=== PATIENT | female | born 1975 ===

== ENCOUNTER 2025-05-03 14:18 | Outpatient (REF) | payer OTHER, SELFPAY ==
[2025-05-03 18:08] LABS: MANUAL DIFF FLAG NO
[2025-05-03 19:08] LABS: Hematocrit 40.0 % (37.0-47.0); Hemoglobin 13.2 g/dl (12.0-16.0); Imm Gran Abs Auto 0.01 X10*3/uL (0.00-0.03); Imm Gran Pct Auto 0.1 % (0.0-0.4); Lymphocytes Absolute Auto 3.6 X10*3/uL (1.2-4.9); Mean Corpuscular HGB Conc 33.0 g/dl (31.0-35.0); Mean Corpuscular Hemoglobin 29.2 pg (27.0-33.0); Mean Corpuscular Volume 88.5 fL (80.0-98.0); NRBC Abs Auto 0.000 X10*3/uL (0.0-0.012); NRBC Pct Auto 0.0 /100WBC (0.0-0.2); Platelet Count 296 X10*3/uL (160-400); Red Blood Count 4.52 X10*6/uL (4.20-5.50); White Blood Count 7.2 X10*3/uL (4.8-10.8)
[2025-05-04 19:14] LABS: Class Alternaria alternata 0; Class Aspergillus fumigatus 0; Class Bermuda Grass 0; Class Birch 0; Class Cat Dander 1; Class Cladosporium herbarum 0; Class Cockroach 0; Class Common Ragweed 0; Class Cottonwood 0; Class Derm. pterony 0; Class Dermatophagoides farinae 0; Class Dog Dander 0/1; Class Elm 0; Class Maple Box Elder 0; Class Mountain Cedar 0; Class Mouse Urine Protein 0; Class Mugwort 0; Class Oak 0; Class Penicillium crysogenum 0; Class Rough Pigweed 0; Class Sheep Sorrel 0; Class Sycamore 0; Class Timothy Grass 0; Class Walnut Tree 0; Class White Ash 0; Class White Mulberry 0; D002 - IgE D farinae <0.10 kU/L; E001 - IgE Cat Dander 0.39 kU/L; E005 - IgE Dog Dander 0.35 kU/L; G006 - IgE Timothy Grass <0.10 kU/L; I006-IgE Cockroach, German <0.10 kU/L; M002 - IgE Cladosporium herbar <0.10 kU/L; M003 - IgE Aspergillus fumigat <0.10 kU/L; M006 - IgE Alternaria alternat <0.10 kU/L; T001 IgE Maple/Box Elder <0.10 kU/L; T006 - IgE Cedar, Mountain <0.10 kU/L; T007 - IgE Oak, White <0.10 kU/L; T008 IgE Elm, American <0.10 kU/L; T010 - IgE Walnut <0.10 kU/L; T011 - IgE Maple Leaf Sycamore <0.10 kU/L; T014 - IgE Cottonwood <0.10 kU/L; T015 - IgE Ash, White <0.10 kU/L; T070 - IgE White Mulberry <0.10 kU/L; W001 - IgE Ragweed, Short <0.10 kU/L; W006 - IgE Mugwort <0.10 kU/L; W014 IgE Pigweed, Common <0.10 kU/L; W018 IgE Sheep Sorrel <0.10 kU/L
== END 2025-05-03 14:19 | disposition home or self-care (01) ==
LOC: HO.WFDLDS 14:18
PROVIDERS: PCP Physician Assistant Medical; Visit Provider Nurse Practitioner Family
DX: R06.02 Shortness of breath (principal); Z91.09 Other allergy status, other than to drugs and biological substances
CPT/HCPCS: 36415; 82785; 85025; 86003

== ENCOUNTER 2025-05-03 14:18 | Outpatient (AMB) | payer OTHER, SELFPAY ==
[2025-05-03 14:21] VITALS: BP 140/78; PULSE 73; O2SAT 97; BMI 41.7
--- NOTE | 2025-05-03 14:21 | MHC.OFFVIS ---
Vital Signs 05/03/25 14:21 Height 5 ft 3 in Weight 235 lb 8 oz BMI 41.7 BP 140/78 H Blood Pressure Location Lt brachial Position Sitting Pulse 73 Pulse Source Pulse Oximeter Pulse Oximetry (%) 97 Oxygen Delivery Method Room Air Intake Visit Reasons: Asthma Allergies ciprofloxacin (From Cipro) Allergy (Intermediate, Verified 05/03/25 14:26) Dizziness levofloxacin (From Levaquin) Allergy (Intermediate, Verified 05/03/25 14:26) Dizziness prednisone Allergy (Intermediate, Verified 05/03/25 14:26) Redness of Skin Sulfa (Sulfonamide Antibiotics) Allergy (Intermediate, Verified 05/03/25 14:26) Unknown HPI HPI Asthma: Details: Justine is a pleasant 49 year old female, former 15 year smoker, quit 5+ years ago with underlying eosinophilia, allergic rhinitis, anxiety, depression and IBS. She was referred by PCP for pulmonary evaluation questioning asthma. The patient reports experiencing wheezing, particularly noticeable when lying down at night, and occasional shortness of breath during activities, although she does not engage in regular exercise. She was previously told she had asthma during a but has not had a formal diagnosis since then. She uses albuterol inhalers as needed, but not on a regular basis. The wheezing has been present for months, possibly years, and is sometimes accompanied by a dry cough. Denies h/o recurrent URIs. There is a family history of asthma, with her sister and children also affected. The patient has a history of allergies, confirmed by previous allergy testing, which showed sensitivity to multiple allergens many years ago. She experiences symptoms such as sneezing and wheezing, which she associates with exposure to tree pollen and leaf mold, especially after moving to a new house with significant leaf debris. She has not been taking any allergy medications regularly but has used loratadine in the past, which she discontinued due to itching upon cessation. Denies any occupational exposures. Review of Systems Const Denies chills, Denies excessive sweating, Denies fever(s), Denies headache(s) and Denies night sweats Eyes Denies dry eyes and Denies irritation ENT Reports Normal hearing present, Denies headache(s), Denies nasal congestion, Denies nasal discharge, Denies post nasal drip and Denies sore throat Card Denies chest pain, Denies chest pain at rest, Denies chest pain with activity, Denies claudication, Denies leg edema, Denies orthopnea and Denies paroxysmal nocturnal dyspnea Resp Denies chest congestion, Denies excessive phlegm production, Denies pain on inspiration, Denies pain with cough and Denies stridor Musc Denies myalgias Neuro Reports Normal hearing present and Denies headache(s) Endo Denies excessive sweating Terence/Lymph Denies lymphadenopathy Aller/Immun Denies seasonal rhinorrhea Physical Exam Vital Signs: Last Vital Signs Pulse 73 05/03/25 14:21 BP 140/78 H 05/03/25 14:21 Pulse Ox 97 05/03/25 14:21 Oxygen Delivery Method Room Air 05/03/25 14:21 BMI result Body Mass Index 41.7 Const General: cooperative, healthy appearing, comfortable, no acute distress, well developed and alert Nutritional Appearance: obese Orientation/consciousness: patient oriented x3 Limitations: no limitations HEENT Head: Yes normal to inspection, Yes normocephalic and Yes atraumatic Ears: hearing grossly normal bilaterally and external ears normal Eyes General: appearance normal, both eyes and all related structures Eyelids: Yes eyelids normal Sclerae: sclerae normal EOM: EOMs intact bilaterally Neck Neck: Yes normal visual inspection and Yes no lymphadenopathy Lymphatic: no lymphadenopathy noted Chest Chest palpation & inspection: normal inspection of the chest Resp Effort & Inspection: normal respiratory effort, able to speak in complete sentences, no audible wheezes, no cough, no stridor, not tachypneic, no tripod positioning and no use of accessory muscles Auscultation: clear to auscultation bilaterally Cardio Jugular venous distension: no JVD Rate: regular rate Rhythm: regular rhythm Skin Other: warm, dry General skin exam: no rashes or lesions noted Neuro General: patient oriented x3 Cranial nerves: Yes Normal hearing present Cognition (Neuro): normal cognition Gait exam (Neuro): Normal gait present Extrem General: Yes normal to inspection, Yes capillary refill normal, Yes no clubbing, cyanosis or edema and Yes no pedal edema Psych Appearance: grossly normal and well kempt Speech and movement: Normal speech and movement present and Clear speech present Affect: normal affect Attitude: cooperative Thought process: Normal thought process present Thought content: Normal thought content present Insight: Good insight present (Psych) Judgement: Good judgement present (Psych) Assessment & Plan Assessment & Plan (1) Dyspnea: Code(s): R06.00 - Dyspnea, unspecified Category: Medical (2) Environmental allergies: Code(s): Z91.09 - Other allergy status, other than to drugs and biological substances Category: Medical Plan Discussed with the patient the potential diagnosis of asthma and the importance of conducting a PFT and chest x-ray to evaluate lung function and structure. We discussed the role of allergies in her symptoms and the need for updated allergy testing. Will send for RAST. Advised her to use albuterol as needed and to monitor her symptoms, with consideration for ICS. All questions were answered and patient is in agreement of plan. Will follow-up to review results or sooner if needed. Orders: Orders Complete Blood Count Auto Diff Today Z91.09 - Other allergy status, other than to drugs and biological substances XR chest 2V Today R06.00 - Dyspnea, unspecified PFT pulmonary function test Today R06.00 - Dyspnea, unspecified Resp Allergy Profile Region I Today Z91.09 - Other allergy status, other than to drugs and biological substances Immunoglobulin E Today Z91.09 - Other allergy status, other than to drugs and biological substances Coding Level of Care Code New Pt Level 4 (71963) Diagnoses Dyspnea R06.00 Environmental allergies Z91.09
--- OUTSIDE RECORDS SUMMARY | 2025-05-03 17:42 | XMS_ITS | Encounter Summary ---
Author Organization [facility] Address [address] [place] [address] Care Team Providers Care Extras Casting Director Name Role Phone Mack Wilson MD Primary Care Provider [phone] Encounter Details Date Type Department Care Team (Late st Contact Info) Description 10/05/2024 Lab Requisition [facility] - Main Lab [address] [facility] [place] [address] Thong Gee MD [address] [place] [phone] Urinary tract infection, site not specified Social History Tobacco Use Types Packs/Day Years Used Date Smoking Tobacco: Former Cigarettes 0.3 24.7 0 06/22/1995 - 03/22/2020 Smokeless Tobacco: Never Alcohol Use Standard Drinks/Week Comments Yes 0 (1 standard drink = 0.6 oz pur e alcohol) Comments No Sex and Gender Information Value Date Recorded Sex Assigned at Female 02/03/2025 8:21 AM EDT Legal Sex Female 5:42 AM EST Gender Identity Female 02/03/2025 8:21 AM EDT Sexual Orientation Not on file documented as of this encounter Plan of Treatment Upcoming Encounters Date Type Department Care Team (Late st Contact Info) Description 05/22/2025 3:00 PM EST Office Visit Gastroenterology - [address] [place] [phone] Raven Henning NP [address] [place], [place] [phone] documented as of this encounter Procedures Procedure Name Priority Date/Time Associated Diagnosis Comments CULTURE URINE Routine 10/05/2024 12:00 AM EDT Urinary tract infection, site not specified documented in this encounter Results * Culture urine (10/05/2024 12:00 AM EDT) Culture, Urine No growth 10/06/2024 2:11 PM EDT [facility] Urine Indwelling urinary catheter / Unknown 10/05/2024 10/05/2024 6:24 PM EDT us Thong Gee MD LAB MICROBIOLOGY - GENERA L ORDERABLES Final Result [facility] [address] [place] [address], documented in this encounter Visit Diagnoses Diagnosis Urinary tract infection, site not specified documented in this encounter Care Teams Extras Casting Director Relationship Specialty Start Date End Date Mack Wilson MD [facility] [place] [address] PCP - General Internal Medicine 02/03/25 documented as of this encounter
--- OUTSIDE RECORDS SUMMARY | 2025-05-03 17:42 | XMS_ITS | Clinical Summary ---
Author Organization [facility] Address [address] [place] [address] Phone Care Team Providers Care Auto Machinist Name Role Phone Mack Wilson MD Primary Care Provider [phone] Allergies Active Allergy Reactions Criticality Noted Date Comments Amoxicillin-Pot Clavulanate Diarrhea,Nausea And Vomiting High 07/16/2023 Also dehydration Ciprofloxacin Unknown 02/02/2018 S/e - dizziness Levofloxacin Unknown 08/20/2018 S/e dizziness Morphine 04/30/2024 Other 02/02/2018 Post nasal drip , Stuffiness Prednisone Flushing,Unknown Medium 02/06/2022 Sulfa (Sulfonamide Antibiotics) Unknown 04/17/2022 Medications PAROXETINE HCL ORAL Take by mouth. Activ e LORazepam (ATIVAN) 0.5 mg tablet Take 1 tablet (0.5 mg total) by mouth 3 (three) times a day if needed for anxiety. 06/02/20 24 Active albuterol HFA (PROAIR HFA ; PROVENTIL HFA ; VENTOLIN HFA) 90 mcg/actuation inhaler Inhale 1-2 puffs by mouth. 09/16/19 20 Active fluticasone propionate (Flonase Allergy Relief) 50 mcg/actuation nasal spray Administer into affected nostril(s). 09/25/19 23 Active loratadine (CLARITIN) 10 mg tablet Take 1 tablet (10 mg total) by mouth 1 (one) time each day. 07/16/19 24 Active ondansetron ODT (ZOFRAN-ODT) 4 mg disintegrating tablet Dissolve 1 tablet (4 mg total) on top of the tongue every 8 (eight) hours if needed. 09/25/19 23 Active pantoprazole (PROTONIX) 40 mg EC tablet PLEASE SEE ATTACHED FOR DETAILED DIRECTIONS Active PARoxetine CR (PAXIL-CR) 12.5 mg 24 hr tablet Take 1 tablet (12.5 mg total) by mouth 1 (one) time each day in the morning. Active simethicone (MYLICON,GAS-X) 125 mg capsule Take 1 capsule (125 mg total) by mouth. 06/25/19 22 Active sodium fluoride-pot nitrate 1.1-5 % paste dental paste USE 2-3X/DAILY, SPIT OUT EXCESS. DO NOT RINSE WITH WATER. NO EATING OR DRINKING FOR 45 MIN AFTER 05/25/20 24 Active norethindrone (LG,LION,HEAT HER,MICRONOR) 0.35 mg tablet Take 1 tablet (0.35 mg total) by mouth 1 (one) time each day. 28 tablet 06/06/20 24 025 Active norethindrone (LG,LION,HEAT HER,MICRONOR) 0.35 mg tablet Take 1 tablet (0.35 mg total) by mouth 1 (one) time each day. 28 tablet 07/04/19 25 Active sucralfate (CARAFATE) 100 mg/mL suspension Take 10 mL (1 g total) by mouth 4 (four) times a day if needed (dyspepsia). 1200 mL 07/04/19 25 Active pantoprazole (PROTONIX) 40 mg EC tablet Take 1 tablet (40 mg total) by mouth 2 (two) times a day. Take on empty stomach, wait 30 mins and then eat to activate the medication before breakfast and supper 60 each 07/04/19 25 Active famotidine (Pepcid) 20 mg tablet Take 1 tablet (20 mg total) by mouth 2 (two) times a day. 60 each 07/04/19 25 026 Active ergocalciferol (VITAMIN D-2) 1,250 mcg (50,000 unit) capsule TAKE 1 CAPSULE BY MOUTH ONCE WEEKLY FOR 8 WEEKS 11/18/19 25 Active fluconazole (DIFLUCAN) 100 mg tablet Take by mouth 1 (one) time each day. Active doxycycline (ADOXA) 100 mg tablet Take 1 tablet (100 mg total) by mouth 2 (two) times a day. Take with a full glass of water and do not lie down for at least 30 minutes after Active methocarbamoL (ROBAXIN) 500 mg tablet Take 1 tablet (500 mg total) by mouth 4 (four) times a day. Active naltrexone (DEPADE) 50 mg tablet Take 1 tablet (50 mg total) by mouth 1 (one) time each day. Active dicyclomine (BENTYL) 10 mg capsule Take 1 capsule (10 mg total) by mouth 4 (four) times a day if needed (abd pain/cramping) . 360 capsule 04/06/20 25 026 Active sucralfate (CARAFATE) 100 mg/mL suspension Take 10 mL (1 g total) by mouth 4 (four) times a day (with meals and nightly). Take 1 hour before meals and at bedtime 1200 mL 11 04/26/20 24 025 dicyclomine (BENTYL) 10 mg capsule Take 1 capsule (10 mg total) by mouth. 07/30/19 24 025 Discontinu ed(Reorder ) Active Problems No known active problems Encounters Date Type Department Care Team Description 04/01/2025 8:14 AM EDT - 04/01/2025 11:59 PM EDT Hospital Encounter Radiology Department - [address] [address] Encounter for screening mammogram for breast cancer Discharge Disposition: Home or Self Care 02/03/2025 Telephone Gastroenterology - [address] [place] [phone] Jose Antonio Phelps MD from Last 3 Months Immunizations Immunization Administration Dates Next Due Influenza Quadravalent, MDCK , 0.5ml, preservative free (Flucelvax) 6mo and older 04/09/2021,04/04/2020 Pneumococcal polysaccharide 23 valent (Pneumovax 23) 2yo and older 02/09/2019 Surgical History Surgery Date Site/Laterality Comments TONSILLECTOMY PROCEDURE: HISTORICAL TONSILLECTOMY SECTION PROCEDURE: [place] DELIVERY ONLY; COMMENT: x2 UPPER GASTROINTESTINAL ENDOSCOPY 05/15/20 20 PROCEDURE: UPPER GI ENDOSCOPY/EXAM; COMMENT: tiny pyloric ulcers/biopy pending COLONOSCOPY 05/23/20 PROCEDURE: HISTORICAL COLONOSCOPY; COMMENT: normal ESOPHAGOGASTRODUODENOSCOPY 05/23/20 PROCEDURE: [place] ESOPHAGOGASTRODUODENOSCOPY TRANSORAL DIAGNOSTIC; COMMENT: normal, antral biopsy pending Medical History Medical History Date Comments Obesity (BMI 30-39.9) 02/02/2018 DX:Obesity (BMI 30-39.9) Thoracic outlet syndrome 02/02/2018 DX:Thor acic outlet syndrome Erosive gastritis 05/22/2020 DX:Erosive gas tritis Eosinophilia DX:Eosinophilia Epigastric pain DX:Epigastric pa in Anxiety DX:Anxiety Nausea DX:Nausea IBS (irritable bowel syndrome) D X:IBS (irritable bowel syndrome) Esophageal reflux DX:Esophageal reflux Gassiness DX:Gassiness History of gastric ulcer DX:Hist ory of gastric ulcer Asthma DX:Asthma Depressive disorder DX:Depressiv e disorder Abdominal pain DX:Abdominal austin n Acute stress reaction DX:Acute s tress reaction Family History Medical History Relation Name Comments Coronary artery disease Father CABG x5, sciatica No Known Problems Maternal Grandfather Glaucoma Maternal Grandmother Hypertension Mother alzheimers, hea rt issues, diabetes, OA, thyroid disease No Known Problems Paternal Grandfather No Known Problems Paternal Grandmother Thyroid disease Sister 1 No Known Problems Sister 2 Allergies Son 1 Allergies Son 2 Breast cancer Neg Hx Relation Name Status Comments Father Maternal Grandfather Maternal Grandmother Mother Paternal Grandfather Paternal Grandmother Sister 1 Alive Sister 2 Alive Son 1 Son 2 Social History Tobacco Use Types Packs/Day Years Used Date Smoking Tobacco: Former Cigarettes 0.3 24.7 0 06/22/1995 - 03/22/2020 Smokeless Tobacco: Never Tobacco Cessation:Counseling Given: Not Answered Alcohol Use Standard Drinks/Week Comments Yes 0 (1 standard drink = 0.6 oz pur e alcohol) Comments No Sex and Gender Information Value Date Recorded Sex Assigned at Female 02/03/2025 8:21 AM EDT Legal Sex Female 5:42 AM EST Gender Identity Female 02/03/2025 8:21 AM EDT Sexual Orientation Not on file Obstetrics History Para Term AB IAB SAB Ectopic Multiple Livin g Live Births 3 2 2 2 Date Outcome GA Total Labor Labor/2nd/3rd Weight Sex Type Anes PTL Candy A1 A5 Name Clin Term 2007 M CS-LTra nv 2012 Term M CS-LTra nv Last Filed Vital Signs Vital Sign Reading Time Taken Comments Blood Pressure 128/76 07/04/2024 8:03 AM EST Pulse 84 07/04/2024 8:03 AM EST Temperature 36.4 C (97.5 F) 05/01/2024 12:24 AM EST Respiratory Rate 17 06/06/2024 3:24 PM EST Oxygen Saturation 100% 05/01/2024 12:24 AM EST Inhaled Oxygen Concentration - - Weight 107 kg (236 lb) 07/04/2024 8:03 AM EST Height 160 cm (5' 3 ) 07/04/2024 8:03 AM EST Body Mass Index 41.81 07/04/2024 8:03 AM EST Plan of Treatment Upcoming Encounters Date Type Department Care Team ([facility] st Contact Info) Description 05/22/2025 3:00 PM EST Office Visit Gastroenterology - [address] [phone] Raven Henning, BRIAN [address] [facility] [address] [place] [address] Health Maintenance Due Date Last Done Comments DTaP,Tdap,and Td Vaccines (1 - Tdap) 1996 Hepatitis B Vaccines (1 of 3 - 19+ 3-dose series) 1996 Pneumococcal Vaccine: Pediatrics (0 to 5 Years) and At-Risk Patients (6 to 49 Years) (2 of 2 - PCV) 02/10/2020 02/09/2019 Social Influencers of Health Screening 05/31/2022 Depression Screening 06/22/2024 COVID-19 Vaccine (3 - 2024- season) 2025 08/14/2020, 07/16/2020 Influenza Vaccine (#1) 2025 04/09/2021, 2019 Cholesterol Screening (Lipid Panel) 05/02/2025 05/02/2020 Cervical Cancer Screening: HPV 12/12/2025 12/12/2020 Breast Cancer Screening 04/01/2027 04/01/20, 01/09/2024, 01/09/2024, Additional history exists Colorectal Cancer Screening: Colonoscopy 05/30/2032 RSV Immunization Adult Patients (1 - 1-dose 75+ series) 2052 Hepatitis C Screening Completed 01/06/2023 HIV Screening Completed 06/06/2024, 01/06/2023 HIB Vaccines Aged Out No longer eligi ble based on patient's age to complete this topic HPV Vaccines Aged Out No longer eligi ble based on patient's age to complete this topic Hepatitis A Vaccines Aged Out No long er eligible based on patient's age to complete this topic IPV Vaccines Aged Out No longer eligi ble based on patient's age to complete this topic MMR Vaccines Aged Out No longer eligi ble based on patient's age to complete this topic Meningococcal ACWY Vaccine Aged Out N o longer eligible based on patient's age to complete this topic Meningococcal B Vaccine Aged Out No l onger eligible based on patient's age to complete this topic RSV Immunization Patients Under 20 months Aged Out No longer eligible based on patient's age to complete this topic Varicella Vaccines Aged Out No longer eligible based on patient's age to complete this topic Procedures Procedure Name Priority Date/Time Associated Diagnosis Comments MG MAMMO DIGITAL SCREENING W MEDHAT BILAT Routine 04/01/2025 8:25 AM EDT Encounter for screening mammogram for breast cancer HIV 1, 2 ANTIBODY, P24 ANTIGEN WITH REFLEX TO DIFFERENTIATION Routine 06/06/2024 4:14 PM EST Screen for STD (sexually transmitted disease) HEPATITIS C SCREENING Routine 01/06/2023 HPV Routine 12/12/2020 LIPID PANEL Routine 05/02/2020 from Last 3 Months or Most Recently Relevant to Health Maintenance Results * MG Mammo Digital Screening w Medhat bilat (04/01/2025 8:25 AM EDT) Anatomical Region Laterality Modality Breast Bilateral Mammography 04/04/2025 7:45 AM EDT Impressions 04/04/2025 7:46 AM EDT No mammographic evidence of malignancy. BREAST DENSITY: B - There are scattered areas of fibroglandular density. BI-RADS CATEGORY: 1 - NEGATIVE RECOMMENDATION: Screening bilateral mammogram is recommended in 1 year. MAMMO LOCATION: [facility], [address] [place] [address], [id number], . -------- FINAL REPORT -------- Dictated By: Maria G Brito Dictated Date: 04/04/2025 07:45 ET Assigned Physician: Maria G Brito Reviewed and Electronically Signed By: Maria G Brito Signed Date: 04/04/2025 07:46 ET Workstation ID: [id number] Transcribed By: Self Edit Transcribed Date: 04/04/2025 07:45 ET Narrative 04/04/2025 7:46 AM EDT EXAM: Screening Mammogram CLINICAL: 49 years old, Female, routine annual exam. COMPARISON: 01/09/2024 and as far back as 08/04/2020 TECHNIQUE: Bilateral MLO and CC views were obtained digitally with 3-D mammogram (digital breast tomosynthesis). Computer-aided detection was utilized in evaluation of this exam (CAD). FINDINGS: No new suspicious mass, architectural distortion, or suspicious calcifications. Procedure Note Maria G Brito MD - 04/04/2025 EXAM: Screening Mammogram CLINICAL: 49 years old, Female, routine annual exam. COMPARISON: 01/09/2024 and as far back as 08/04/2020 TECHNIQUE: Bilateral MLO and CC views were obtained digitally with 3-Dmammogram (digital breast tomosynthesis). Computer-aided detection wasutilized in evaluation of this exam (CAD). FINDINGS: No new suspicious mass, architectural distortion, or suspiciouscalcifications. IMPRESSION: No mammographic evidence of malignancy. BREAST DENSITY: B - There are scattered areas of fibroglandular density. BI-RADS CATEGORY: 1 - NEGATIVE RECOMMENDATION: Screening bilateral mammogram is recommended in 1 year. MAMMO LOCATION: [facility], [address] [place] [address], [id number], . -------- FINAL REPORT -------- Dictated By: Maria G Brito Dictated Date: 04/04/2025 07:45 ET Assigned Physician: Maria G Brito Reviewed and Electronically Signed By: Maria G Brito Signed Date: 04/04/2025 07:46 ET Workstation ID: [id number] Transcribed By: Self Edit Transcribed Date: 04/04/2025 07:45 ET Mack Wilson MD IMG BI PROCEDURES Final R esult * HIV 1,2 antibody, p24 antigen with reflex to differentiation (06/06/2024 4:14 PM EST) [facility] HIV Combo AB/AG Negative Negative LAB CHEMISTRY METHOD 06/06/2024 7:33 PM EST [facility] Blood Venous blood specimen / Unknown Venipuncture / Unknown 06/06/2024 4:14 PM EST 06/06/2024 4:14 PM EST Narrative [facility] - 06/06/2024 7:33 PM EST This assay is a 4th generation assay allowing for earlier detection of HIV infection by detecting the presence of the HIV-1 p24 antigen as well as the traditional antibodies to HIV type 1 (including group O) and type 2. Use of a 4th generation assay is the current CDC recommendation for HIV screening. Result [facility] Jeana DEAN LAB BLOOD ORDERABLES Final R esult [facility] [address] [place] [address], * Hepatitis C Screening (01/06/2023) [facility] Hepatitis C Screening Abstracted Historical Provider HEALTH MAINTENANCE Final Result * Cervical Cancer Screening: HPV (12/12/2020) [facility] Cervical Cancer Screening: HPV Negative, Abstracted Historical Provider HEALTH MAINTENANCE Final Result * (ABNORMAL) Lipid panel (05/02/2020) [facility] LDL/HDL Ratio 4 0 - 4 Triglycerides 146 0 - 150 mg/dL Cholesterol 192 0 - 200 mg/dL HDL 53 >=40 mg/dL LDL Cholesterol 110(A) 0 - 100 mg/dL Blood Venous blood specimen / Unknown us Historical Provider LAB BLOOD ORDERABLES Ariela lebron Result from Last 3 Months or Most Recently Relevant to Health Maintenance Insurance [facility] Care Teams Auto Machinist Relationship Specialty Start Date End Date Mack Wilson MD [address] [place] [address] PCP - General Internal Medicine 02/03/25
== END 2025-05-03 14:59 | disposition home or self-care (01) ==
PROVIDERS: PCP Physician Assistant Medical; Visit Provider Nurse Practitioner Family
DX: R06.00 Dyspnea, unspecified (principal); Z91.09 Other allergy status, other than to drugs and biological substances
CPT/HCPCS: 99204